=== PATIENT | male | born 1990 | race Caucasian/White ===

== ENCOUNTER 2016-10-13 | Emergency (ER) | payer SELFPAY ==
--- NOTE | 2016-10-13 00:28 | ED Physician Chart ---
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 THE LEFT UPPER ARM WAS RECENTLY OPERATED ON AND IS SWOLLEN WITH RENO NOTED IN PLACE. THE PATIENT IS ON METHADONE WITH A HISTORY OF PTSD AND DEPRESION. Vitals:: Vital Signs - 8 hr 10/13/16 00:08 Temp 99.0 F HR 101 RR 16 BP 148/90 O2 Sat % 98 Historian:: Patient Review:: Nurse's Note Reviewed Review of Systems - Review of Systems General/Constitutional: No fever, No chills, No weight loss, No weakness, No diaphoresis, No edema, No loss of appetite Skin: No skin lesions, No rash, No bruising Head: No headache, No light-headedness Eyes: No loss of vision, No pain, No diplopia ENT: No earache, No nasal drainage, No sore throat, No tinnitus Neck: No neck pain, No swelling, No thyromegaly, No stiffness, No mass noted Cardio Vascular: No chest pain, No palpitations, No PND, No orthopnea, No edema Pulmonary: No SOB, No cough, No sputum, No wheezing GI: No nausea, No vomiting, No diarrhea, No pain, No melena, No hematochezia, No constipation, No hematemesis G/U: No dysuria, No frequency, No hematuria Musculoskeletal: Bone or joint pain (THE LEFT UPPER ARM AREA SURGICAL WOUND.), No back pain, No muscle pain Endocrine: No polyuria, No polydipsia Psychiatric: No prior psych history, No depression, No anxiety, No suicidal ideation Hematopoietic: No bruising, No lymphadenopathy Allergic/Immuno: No urticaria, No angioedema Neurological: No syncope, No focal symptoms, No weakness, No paresthesia, No headache, No seizure, No dizziness, No confusion, No vertigo Past Medical History - Past Medical History Obtainable: Yes Past Medical History: Other (DEPRESSION, PTSD , METHADONE FOR HEROIN ADDICTION) Family History: None Social History: Smoker, No Alcohol, No Drug Use Surgical History: other ( RIGHT ROTATOR CUFF, LEFT HUMERUS SURGERY, KNEE SURGERY. ) Family Medical History - Family Member Mother History Unknown: Yes Physical Exam - Physical Examination General/Constitutional: Awake, Well-developed, well-nourished, Alert, No distress, GCS 15, Non-toxic appearing, Ambulatory Head: Atraumatic Eyes: Lids, conjuctiva normal, PERRL, EOMI Skin: Nl inspection, No rash, No skin lesions, No ecchymosis, Well hydrated, No lymphadenopathy ENMT: External ears, nose nl, Nasal exam nl, Lips, teeth, gums nl Neck: Nontender, Full ROM w/o pain, No JVD, No nuchal rigidity, No bruit, No mass, No stridor Respiratory: Nl effort/Exclusion, Clear to Auscultation, No Wheeze/Rhonchi/Rales Cardio Vascular: RRR, No murmur, gallop, rubs, NL S1 S2 GI: No tenderness/rebounding/guarding, No organomegaly, No hernia, Normal BS's, Nondistended, No mass/bruits, No McBurney tenderness : No CVA tenderness Extremities: Full ROM, normal strength in all extremities, No edema, Normal digits & nails Other Extremities comments:: THE LEFT UPPER ARM IS SWOLLEN WITH RENO IN NOTED IN PLACE AND THE WOUND LOOKS CLEAN WITH NO DISCHARGE NOTED. THE PATIENT TOOK OFF THE WOUND DRESSING AND SPLINTING MATERIAL. THE ROM WAS LIMITED BECAUSE OF RECENT POST OP SWELLING. THE LEFT WRIST WAS NORMAL ON EXAMINATION. Neuro/Psych: Alert/oriented, DTR's symmetric, Normal sensory exam, Normal motor strength, Judgement/insight normal, Mood normal, Normal gait, No focal deficits Misc: normal gait, Normal back, No paraspinal tenderness Assessment - Assessment General Assessment: LEFT ARM POST SURGERY WOUND HEALING NICELY AND HE SHOULD CONTINUE THE ANTIBIOTICS AND BE SEEN BY ORTHOPEDIST IN TWO DAYS FOR ANOTHER EVALUATION OF THE LEFT UPPER ARM. ED Septic Shock - . Is Septic Shock (SBP<90, OR Lactate>4 mmol\L) present?: No - <6hrs of presentation: Vital Signs: Vital Signs - 8 hr 10/13/16 00:08 Temp 99.0 F HR 101 RR 16 BP 148/90 O2 Sat % 98 Reassessment (Disposition) - Reassessment Reassessment Condition:: Unchanged - Diagnosis Diagnosis:: POST OPERATION LEFT UPPER ARM WOUND CHECK - Aftercare/Follow up Instructions Aftercare/Follow-Up Instructions:: Counseled pt regarding lab results/diagnosis & need follow up, Refer to Discharge Instructions, Counseled pt & family regarding lab results/diagnosis & need follow up Notes:: TO BE SEEN BY AN ORTHOPEDIC SURGEON IN TWO DAYS WITH CONTINUED CURRENT MEDICATIONS. - Patient Disposition Discharge/Transfer:: Nursing Home/Skilled Nursing Condition at Disposition:: Unchanged ED Discharge Plan - Patient Disposition Admit/Discharge/Transfer: Nursing Home/Skilled Nursing Condition at Disposition: Stable
== END 2016-10-13 00:25 | disposition still patient (30) ==
LOC: ER
DX: S40.922D Unspecified superficial injury of left upper arm, subsequent encounter (principal); F17.200 Nicotine dependence, unspecified, uncomplicated; X58.XXXD Exposure to other specified factors, subsequent encounter
CPT/HCPCS: Z7502